=== PATIENT | female | born 2005 | race Caucasian/White ===

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

== ENCOUNTER 2023-02-18 22:00 | Emergency (ER) | payer BC, MEDICAID ==
[~2023-02-18] VITALS: Ht 152.4 cm; Wt 86.1 kg
--- NOTE | 2023-02-18 22:26 | ED GI ---
General Chief Complaint: Abdominal/GI Problems Stated Complaint: N/D,FEVER,ABD PAIN Source of Information: Patient, Spouse Exam Limitations: No Limitations History of Present Illness Date Seen by Provider: Feb 18, 2023 Time Seen by Provider: 22:15 Initial Comments 17-year-old female presents to the ER complaining of 2-day history of i ntermittent abdominal pain that is currently subsided, intermittent fevers up to 102, nausea, headache. She has taken Tylenol this morning for fever and is currently fever free. Her significant other had similar symptoms 1 week ago. Patient also admits to diarrhea. Allergies and Home Medications Allergies Coded Allergies: No Known Drug Allergies (Unverified , 11/29/18) Patient Home Medication List Home Medication List Reviewed: Yes Ondansetron (Ondansetron Odt) 4 Mg Tab.rapdis, 4 MG PO Q6H PRN for NAUSEA/VOMITING Prescribed by: ULISSES AMADOR on 11/29/18 7015 Review of Systems Review of Systems Constitutional: see HPI (All other systems negative except as documented in HPI.) Past Fvkbojk-Kwouiz-Rpgvmn Hx Patient Social History Tobacco Use?: No Substance use?: No Alcohol Use?: No Immunizations Up To Date Influenza Vaccine Up-to-Date: No; Not Current Seasonal Allergies Seasonal Allergies: No Past Medical History Surgery/Hospitalization HX: Anxiety/Depression Surgeries: No Respiratory: No Cardiac: No Neurological: No Genitourinary: No Gastrointestinal: No Musculoskeletal: No Endocrine: No HEENT: No Cancer: No Psychosocial: No Integumentary: No Family Medical History No Pertinent Family Hx Physical Exam Vital Signs Vital Signs - First Documented 02/18/23 22:00 Temp 36.7 Pulse 83 Resp 20 B/P (MAP) 97/72 (80) Pulse Ox 100 O2 Delivery Room Air Capillary Refill : Height/Weight/BMI Height: 5'0" Weight: 145lbs. oz. 65.206330fg; 36.00 BMI Method:Stated General Appearance: WD/WN, no apparent distress HEENT: PERRL/EOMI, normal ENT inspection, TMs normal, pharynx normal Neck: non-tender, full range of motion, supple, normal inspection Respiratory: chest non-tender, lungs clear, normal breath sounds, no respiratory distress, no accessory muscle use Cardiovascular: normal peripheral pulses, regular rate, rhythm, no edema, no gallop, no JVD, no murmur Peripheral Pulses: 2+ Carotid (R), 2+ Carotid (L), 2+ Femoral (R), 2+ Femoral (L), 2+ Dorsalis Pedis (R), 2+ Left Dors-Pedis (L), 2+ Radial Pulses (R), 2+ Radial Pulses (L) Gastrointestinal: normal bowel sounds, non tender, soft, no organomegaly, no pulsatile mass Rectal: normal exam Genital/Rectal: normal genital exam Extremities: normal range of motion, non-tender, normal inspection, no pedal edema, no calf tenderness, normal capillary refill, pelvis stable Pelvic: normal external exam, normal adnexa, no cerv. 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, no motor/sensory deficits, alert, normal mood/affect, oriented x 3 Skin: normal color, warm/dry Lymphatic: no adenopathy Progress/Results/Core Measures Results/Orders Lab Results Laboratory Tests Test 02/18/23 22:40 02/18/23 22:45 Range/Units White Blood Count 6.6 4.3-11.0 10^3/uL Red Blood Count 4.09 3.80-5.11 10^6/uL Hemoglobin 11.9 11.5-16.0 g/dL Hematocrit 36 35-52 % Mean Corpuscular Volume 89 80-99 fL Mean Corpuscular Hemoglobin 29 25-34 pg Mean Corpuscular Hemoglobin Concent 33 32-36 g/dL Red Cell Distribution Width 13.1 10.0-14.5 % Platelet Count 371 130-400 10^3/uL Mean Platelet Volume 9.2 9.0-12.2 fL Immature Granulocyte % (Auto) 0 % Neutrophils (%) (Auto) 55 42-75 % Lymphocytes (%) (Auto) 21 12-44 % Monocytes (%) (Auto) 21 H 0-12 % Eosinophils (%) (Auto) 2 0-10 % Basophils (%) (Auto) 1 0-10 % Neutrophils # (Auto) 3.7 1.8-7.8 10^3/uL Lymphocytes # (Auto) 1.4 1.0-4.0 10^3/uL Monocytes # (Auto) 1.4 H 0.0-1.0 10^3/uL Eosinophils # (Auto) 0.1 0.0-0.3 10^3/uL Basophils # (Auto) 0.0 0.0-0.1 10^3/uL Immature Granulocyte # (Auto) 0.0 0.0-0.1 10^3/uL Sodium Level 135 135-145 MMOL/L Potassium Level 3.7 3.6-5.0 MMOL/L Chloride Level 103 98-107 MMOL/L Carbon Dioxide Level 22 21-32 MMOL/L Anion Gap 10 5-14 MMOL/L Blood Urea Nitrogen 7 7-18 MG/DL Creatinine 0.56 L 0.60-1.30 MG/DL Estimat Glomerular Filtration Rate 135 BUN/Creatinine Ratio 13 Glucose Level 81 70-105 MG/DL Calcium Level 9.3 8.5-10.1 MG/DL Corrected Calcium 9.3 8.5-10.1 MG/DL Total Bilirubin 0.2 0.1-1.0 MG/DL Aspartate Amino Transf (AST/SGOT) 21 5-34 U/L Alanine Aminotransferase (ALT/SGPT) 16 0-55 U/L Alkaline Phosphatase 98 40-136 U/L Total Protein 7.1 6.4-8.2 GM/DL Albumin 4.0 3.2-4.5 GM/DL Lipase 20 8-78 U/L Influenza Type A (RT-PCR) Not Detected Not Detecte Influenza Type B (RT-PCR) Not Detected Not Detecte SARS-CoV-2 RNA (RT-PCR) Not Detected Not Detecte Urine Color YELLOW Urine Clarity CLEAR Urine pH 6.5 5-9 Urine Specific [place] <=1.005 1.016-1.022 Urine Protein NEGATIVE NEGATIVE Urine Glucose (UA) NEGATIVE NEGATIVE Urine Ketones NEGATIVE NEGATIVE Urine Nitrite NEGATIVE NEGATIVE Urine Bilirubin NEGATIVE NEGATIVE Urine Urobilinogen 0.2 < = 1.0 MG/DL Urine Leukocyte Esterase 1+ H NEGATIVE Urine RBC (Auto) NEGATIVE NEGATIVE Urine RBC NONE /HPF Urine WBC 2-5 /HPF Urine Squamous Epithelial Cells 5-10 /HPF Urine Crystals NONE /LPF Urine Bacteria TRACE /HPF Urine Casts NONE /LPF Urine Mucus NEGATIVE /LPF Urine Culture Indicated NO Urine Test NEGATIVE NEGATIVE My Orders Orders - TAMIE TABOR DO Ns Iv 1000 Ml (Ns Iv 1000 Ml) (02/18/23 22:30) Ondansetron Injection (Ondansetron Inj (02/18/23 22:30) Ed Iv/Invasive Line Start (02/18/23 22:16) Cbc And Automated Diff (02/18/23 22:16) Comprehensive Metabolic Panel (02/18/23 22:16) Lipase (02/18/23 22:16) Ua Culture If Indicated (02/18/23 22:16) Covid 19 Inhouse Test (02/18/23 22:16) Influenza A And B By Pcr (02/18/23 22:16) Hcg,Qualitative Urine (02/18/23 22:26) Manual Differential (02/18/23 22:40) Medications Given in ED Current Medications Medications Dose Ordered Sig/Frantz Route Start Time Stop Time Status Last Admin Dose Admin Ondansetron HCl 4 mg ONCE ONCE IVP 02/18/23 22:30 02/18/23 22:31 DC 02/18/23 22:40 4 MG Vital Signs/I&O 02/18/23 22:00 Temp 36.7 Pulse 83 Resp 20 B/P (MAP) 97/72 (80) Pulse Ox 100 O2 Delivery Room Air Progress Progress Note : Time: 22:25 Progress Note Patient seen for flulike symptoms. Differential includes influenza, COVID, gastroenteritis, appendicitis, colitis, diverticulitis, gallbladder disease. Initiate work-up with IV fluids, Zofran, labs. We will also check for COVID and flu. 2320: Patient's work-up is complete at this time. There are no lab abnormalities. She is feeling better after IV fluids and Zofran. Symptoms likely represent gastroenteritis. Will call in Zofran for her. This was discussed with the patient's family who is at bedside after given permission by patient. Departure Impression Primary Impression: Gastroenteritis Disposition: 01 HOME, SELF-CARE Condition: Stable Departure-Patient Inst. Decision time for Depature: 23:20 Referrals: SELF,ANGELITO WASHBURN (PCP/Family) Primary Care Physician Patient Instructions: Viral gastroenteritis in adults Scripts Ondansetron (Ondansetron Odt) 4 Mg Tab.rapdis 4 MG SL Q4H PRN for NAUSEA/VOMITING for 5 Days, #15 TAB Prov: TAMIE TABOR DO 02/18/23 TAMIE TABOR DO Feb 18, 2023 22:26
[2023-02-18] MEDS ORDERED: NS IV 1000 ML 1,000 ML IV SCH (22:30)
[2023-02-18] MEDS ORDERED: ONDANSETRON INJECTION 4 MG/2 ML (SDV) IVP ONE (22:30)
[2023-02-18 22:48] LABS: BASOPHILS % (AUTO) 1 % (0-10); EOSINOPHILS # (AUTO) 0.1 10^3/uL (0.0-0.3); EOSINOPHILS % (AUTO) 2 % (0-10); HEMATOCRIT 36 % (35-52); HEMOGLOBIN 11.9 g/dL (11.5-16.0); LYMPHOCYTES # (AUTO) 1.4 10^3/uL (1.0-4.0); LYMPHOCYTES % (AUTO) 21 % (12-44); MEAN CORPUSCULAR HEMOGLOBIN 29 pg (25-34); MEAN CORPUSCULAR HGB CONC 33 g/dL (32-36); MEAN CORPUSCULAR VOLUME 89 fL (80-99); MEAN PLATELET VOLUME 9.2 fL (9.0-12.2); MONOCYTES # (AUTO) 1.4 10^3/uL (0.0-1.0); MONOCYTES % (AUTO) 21 % (0-12); NEUTROPHILS # (AUTO) 3.7 10^3/uL (1.8-7.8); NEUTROPHILS % (AUTO) 55 % (42-75); PLATELET COUNT 371 10^3/uL (130-400); WHITE BLOOD COUNT 6.6 10^3/uL (4.3-11.0)
[2023-02-18 22:59] LABS: BILIRUBIN,URINE NEGATIVE (NEGATIVE); CLARITY,URINE CLEAR; COLOR,URINE YELLOW; GLUCOSE, URINE (UA) NEGATIVE (NEGATIVE); KETONES,URINE NEGATIVE (NEGATIVE); LEUKOCYTE ESTERASE ,URINE 1+ (NEGATIVE); NITRITE,URINE NEGATIVE (NEGATIVE); PH,URINE 6.5 (5-9); PROTEIN,URINE NEGATIVE (NEGATIVE)
[2023-02-18 23:05] LABS: BACTERIA,URINE TRACE /HPF
[2023-02-18 23:11] LABS: BILIRUBIN,TOTAL 0.2 MG/DL (0.1-1.0); CALCIUM 9.3 MG/DL (8.5-10.1); CREATININE SERUM 0.56 MG/DL (0.60-1.30); POTASSIUM 3.7 MMOL/L (3.6-5.0)
[2023-02-18 23:12] LABS: TOTAL PROTEIN 7.1 GM/DL (6.4-8.2)
[2023-02-18 23:18] LABS: ATYPICAL LYMPHOCYTES 3 %; BAND NEUTROPHILS 5 %; EOSINOPHILS % (MANUAL) 4 %; LYMPHOCYTES % (MANUAL) 20 %; MONOCYTES % (MANUAL) 20 %; NEUTROPHILS % (MANUAL) 48 %
[2023-02-18 23:19] LABS: PLATELET ESTIMATE ADEQUATE; RBC MORPH NORMAL
[2023-02-18] MEDS ORDERED: ONDA4TAB11 SL (23:21)
[2023-02-18 23:25] VITALS: BP 100/59
== END 2023-02-18 23:25 | disposition home or self-care (01) ==
LOC: EDUNIT# 22:00 → ER FS 22:02
DX: K52.9 Noninfective gastroenteritis and colitis, unspecified (principal)
CPT/HCPCS: 36415; 80053; 81000; 83690; 84703; 85007; 85027; 87636; 96361; 96374